=== PATIENT | female | born 1950 | race Caucasian/White ===

== ENCOUNTER → 2017-04-08 | Outpatient (CLI) | payer MEDICARE ==
[~2017-04-08] MED LIST: DIAZ2TAB PO; ESCI10TA PO; LORA-650 PO; MECL-62 PO; RAMI2.5C PO; TAMO20TA6 PO; TRIA1SPR5 EACH NARE; TRIA37.5 PO; VITA100018 PO; VITA100T53 PO; XARE20TA PO
[2017-04-08 13:49] LABS: AUTOMATED NEUTROPHIL # 5.1 TH/MM3 (1.8-7.7); BASOPHIL # 0.1 TH/MM3 (0-0.2); EOSINOPHIL # 0.3 TH/MM3 (0-0.4); EOSINOPHIL % 3.7 % (0.0-4.0); HEMATOCRIT 39.5 % (35.0-46.0); HEMOGLOBIN 13.9 GM/DL (11.6-15.3); LYMPH % 29.5 % (9.0-44.0); LYMPHOCYTE # 2.5 TH/MM3 (1.0-4.8); MEAN CORPUSCULAR HEMOGLOBIN 30.9 PG (27.0-34.0); MEAN CORPUSCULAR HGB CONC 35.2 % (32.0-36.0); MEAN PLATELET VOLUME 7.7 FL (7.0-11.0); MONO % 6.3 % (0.0-8.0); MONOCYTE # 0.5 TH/MM3 (0-0.9); NEUT % 59.5 % (16.0-70.0); PLATELET COUNT 272 TH/MM3 (150-450); RED BLOOD COUNT 4.49 MIL/MM3 (4.00-5.30); RED CELL DISTRIBUTION WIDTH 12.9 % (11.6-17.2); WHITE BLOOD COUNT 8.5 TH/MM3 (4.0-11.0)
[2017-04-08 13:52] LABS: BACTERIA, URINE RARE /hpf; BILIRUBIN, URINE NEG (NEG); BLOOD, URINE NEG (NEG); GLUCOSE,URINE NEG (NEG); KETONE, URINE NEG (NEG); NITRITE,URINE NEG (NEG); PH, URINE 6.5 (5.0-8.5); SQUAMOUS EPITHELIAL CELL URINE 2 /hpf (0-5); TRANSITIONAL EPI CELLS, URINE <1 /hpf; URINE COLOR LIGHT-YELLOW (YELLW/STRAW); URINE LEUKOCYTE ESTERASE NEG (NEG)
--- NOTE | 2017-04-09 14:34 | EKG ---
Date Performed: 04/08/2017 Time Performed: 13:08:56 PTAGE: 66 years EKG: Sinus arrhythmia. Septal T wave changes are nonspecific ST segment changes Clinical correla tion advised Borderline ECG NO PREVIOUS TRACING DOCTOR: Bonita Ramirez Interpretating Date/Time 04/09/2017 14:32:59
== END ==
LOC: CPRE 13:15
PROVIDERS: ATTEND Obstetrics & Gynecology
DX: Z01.812 Encounter for preprocedural laboratory examination (principal); Z01.810 Encounter for preprocedural cardiovascular examination; R87.619 Unspecified abnormal cytological findings in specimens from cervix uteri; N85.00 Endometrial hyperplasia, unspecified; R94.31 Abnormal electrocardiogram [ECG] [EKG]
CPT/HCPCS: 36415; 81001; 85025; 93005

== ENCOUNTER → 2017-04-10 | Day surgery (SDC) | payer MEDICARE ==
--- NOTE | 2017-04-09 14:44 | MH ---
cc: PATSY WHITE DATE OF ADMISSION 04/10/2017 ADMITTING DIAGNOSIS Pap endometrial cells with endometrial thickening. HISTORY OF PRESENT ILLNESS The patient is a 66-year-old white female, para 2-0-0-2, who had Pap smear on 01/11/2017 that returned with endometrial cells present. Her pelvic ultrasound on 01/24/2017 showed endometrial thickening to 17 mm with a uterus measuring 9.3 cm. The endometrium showed heterogeneous character with multiple cystic areas. She is now admitted for surgical evaluation. PAST MEDICAL/SURGICAL HISTORY 1. 2012 left mastectomy for breast cancer and reconstruction. 2. 2013 repair of right wrist. 3. History of atrial fibrillation and vertigo. MEDICATIONS 1. Ramipril. 2. Xarelto. 3. Tamoxifen. 4. Escitalopram. 5. Diazepam. 6. Triamcinolone. 7. Vitamins. ALLERGIES She has allergies to SULFA AND LASIX. TRANSFUSIONS None. OB HISTORY Two vaginal deliveries. SOCIAL HISTORY , retired. Alcohol, tobacco and drugs are none. FAMILY HISTORY Noncontributory. PHYSICAL EXAMINATION GENERAL: A well-nourished, well-developed white female. VITAL SIGNS: Stable. HEENT: Normal. CHEST: Clear. HEART: Regular rate. BREASTS: Left breast reconstructed. The right is normal. ABDOMEN: Benign. PELVIC: Normal external genitalia and BUS. Vagina is normal. Cervix is normal. Uterus normal size and shape. Adnexa nonpalpable. ASSESSMENT As above. PLAN She is now admitted for hysteroscopy and D&C. While in the office I explained the procedures, the risks, benefits and complications and possible need for additional surgery depending on findings. The patient elected to proceed. MD ANDREA Mora/RODERICK /1:43 PM /2:09 PM
[~2017-04-10] VITALS: Ht 170.2 cm; Wt 85.8 kg
[~2017-04-10] MED LIST changes: +ACETAMINOPHEN 1000 MG/100 ML 100 ML IV SCH; +CHLORHEXIDINE GLUCONATE 2 % 1 PACK (2 CLOTHS) TOPICAL PRN; +DEXAMETHASONE SOD PHOS 4 MG/ML VIAL IV ONE; +DO NOT ADM ANY ANTICOAGULANT DRUGS PRN; +KETOROLAC TROMETHAMINE 30 MG/ML (IVP) VIAL IV PUSH ONE; +LACTATED RINGER'S 1000 ML INJ 1,000 ML IV ONE; +LACTATED RINGER'S 1000 ML IV PRN; +LIDOCAINE HCL 1% PF 5 ML SYRINGE OTHER ONE; +METOCLOPRAMIDE HCL 10 MG/2 ML VIAL IV PRN; +METOPROLOL TARTRATE 25 MG TAB PO PRN; +MIDAZOLAM HCL 2 MG/2 ML VIAL ONE; +ONDANSETRON HCL 4 MG/2 ML VIAL IV PUSH ONE; +OXYTOCIN 10 UNIT/ML AMP ONE; +POVIDONE IODINE 5% (ANTISEPSIS KIT) 4 APPLICATIONS EACH NARE PRN; +PROPOFOL 200 MG/20 ML AMP IV ONE; +ROCURONIUM INJ 50 MG/5 ML SYRINGE IV PUSH ONE; +SODIUM CHLORID 0.9% 500 ML IV PRN; +ceFAZolin 1,000 MG/NS 100 ML IV SCH
--- NOTE | 2017-04-10 08:41 | MP ---
cc: PATSY WHITE DATE OF SURGERY 04/10/2017 PREOPERATIVE DIAGNOSIS Pap endometrial cells with endometrial thickening. POSTOPERATIVE DIAGNOSIS 1. Pap endometrial cells with endometrial thickening. 2. Submucosal fibroid. PROCEDURE Hysteroscopy, D&C. ANESTHESIA General LMA. ESTIMATED BLOOD LOSS Less than 20 cc. FLUIDS 0.5 liter crystalloid. OBJECTIVE FINDINGS Following the induction of adequate general LMA anesthesia the patient was prepped and draped supine on the operating table in the dorsal lithotomy position in the usual sterile fashion with the bladder being drained via in-and-out catheterization. Exam under anesthesia revealed a normal size, shape, anterior uterus. No adnexal masses. A heavy weighted speculum was placed in the posterior fornix of the vagina. The anterior lip of the cervix was grasped with a stainless steel. The cervix was stenotic and gently probed with a lacrimal probe; then a small very soft os finder was passed with sound to 8 cm. The cervix was then dilated to an 18 Alessandro dilator. The hysteroscope was passed with a normal endocervix. The endometrium had a submucosal fibroid. The endocervix was then curetted with a small serrated curette, endometrium a small sharp curette, and polyp forceps was passed to pharmacy picking tech loose tissue and debris. The cervical tenaculum site was sutured with 3-0 chromic for hemostasis. All instruments were removed. All counts were correct. The patient's legs were taken out of the stirrups. She was awakened and taken to the recovery room in good condition. MD ANDREA Mora/RODERICK /7:54 AM /8:28 AM
[2017-04-10 09:25] VITALS: BP 106/69; PULSE 66; RESP 18; TEMP 97.5; O2SAT 99
== END | disposition home or self-care (01) ==
LOC: HSDC 05:33 → EDUNIT# 07:30
PROVIDERS: ATTEND Obstetrics & Gynecology
DX: R87.619 Unspecified abnormal cytological findings in specimens from cervix uteri (principal); D25.0 Submucous leiomyoma of uterus; N85.00 Endometrial hyperplasia, unspecified
CPT/HCPCS: 00952; 58558; 88305; J0131; J0690; J1100; J1885; J2250; J2405; J2590; J3010; J7120